=== PATIENT | female | born 1950 | race Caucasian/White ===

== ENCOUNTER → 2019-08-22 14:46 | Outpatient (CLI) | payer MEDICARE, BC, SELFPAY ==
[2019-08-22 14:17] VITALS: BMI 31.5
[2019-08-22 16:20] LABS: AST(SGOT) 33 U/L (15-37); Alanine Aminotransfer ALT/SGPT 48 U/L (13-56); Alkaline Phosphatase 91 U/L (45-117); Anion Gap 7 (5-15); BUN 14 mg/dL (7-18); BUN/Creat Ratio 12.4 RATIO (10-20); Calcium,Total 8.6 mg/dL (8.5-10.1); Chloride 105 mmol/L (98-107); Cholesterol 309 mg/dL (200); Creatinine, Serum 1.13 mg/dL (0.55-1.02); EST Glomerular Filtration Rate 51 mL/min (>60); Est Glom Filt Rate - Afr Amer 61 mL/min (>60); Glucose 85 mg/dL (74-106); High Density Lipoprotein 37 mg/dL; Sodium Level 139 mmol/L (136-145); Thyroid Stim Hormone (TSH) 1.13 uIU/mL (0.358-3.74); Triglycerides 319 mg/dL; Very Low Density Lipoprotein 64 mg/dL (5-40)
[2019-08-22 16:26] LABS: Absolute Lymphocyte Count 2.39 X10^3/uL (0.83-4.51); Absolute Neutrophil Count 2.6 X10^3/uL (2.0-7.7); Basophil# 0.07 X10^3/uL; Basophil% 1.2 % (0-1); Eosinophil# 0.19 X10^3/uL; Eosinophils% 3.3 % (0-5); Hematocrit 45.7 % (37-47); Hemoglobin 15.2 g/dL (12.0-15.0); Lymphocyte # 2.39 X10^3/ul (4.0); Lymphocyte % 41.1 % (19-41); Mean Corp Hgb Conc 33.3 g/dL (32-36); Mean Corpuscular Volume 93.3 fL (81-99); Mean Platelet Vol. 9.3 fl (6.2-12.0); Monocyte# 0.52 X10^3/uL; Monocyte% 8.9 % (0-10); NRBC Flagged by Analyzer 0 % (0-5); Neutrophil # 2.64 X10^3/uL (2.7-7.7); Neutrophil % 45.3 % (47-70); Platelet Count 398 K/mm3 (150-450); RBC Distribution Width CV 11.9 % (11.6-14.6); White Blood Count 5.8 K/mm3 (4.4-11.0)
[2019-08-26 13:08] LABS: Thyroid Peroxidase AB 10 IU/mL (0-34)
== END ==
PROVIDERS: Family Provider Family Medicine; PCP Family Medicine; Referring Provider Internal Medicine Endocrinology, Diabetes & Metabolism; Visit Provider Internal Medicine Endocrinology, Diabetes & Metabolism
DX: E78.2 Mixed hyperlipidemia (principal)
CPT/HCPCS: 36415; 80053; 80061; 84443; 85025; 86376

== ENCOUNTER → 2019-09-05 10:58 | Outpatient (CLI) | payer MEDICARE, SELFPAY ==
[2019-08-22 14:17] VITALS: BMI 31.5
[2019-09-05 14:28] LABS: Anion Gap 8 (5-15); BUN 10 mg/dL (7-18); BUN/Creat Ratio 9.7 RATIO (10-20); Calcium,Total 9.4 mg/dL (8.5-10.1); Chloride 110 mmol/L (98-107); Cholesterol 141 mg/dL (200); Creatinine, Serum 1.03 mg/dL (0.55-1.02); EST Glomerular Filtration Rate 56 mL/min (>60); Est Glom Filt Rate - Afr Amer 68 mL/min (>60); Glucose 103 mg/dL (74-106); High Density Lipoprotein 43 mg/dL; Potassium 4.2 mmol/L (3.5-5.1); Sodium Level 141 mmol/L (136-145); Triglycerides 157 mg/dL; Very Low Density Lipoprotein 31 mg/dL (5-40)
[2019-09-05 14:33] LABS: Vitamin D,25 Hydroxy 19.4 ng/mL (29.95-100.01)
== END ==
PROVIDERS: Family Provider Family Medicine; PCP Family Medicine; Referring Provider Family Medicine; Visit Provider Family Medicine
DX: E78.5 Hyperlipidemia, unspecified (principal); E55.9 Vitamin D deficiency, unspecified
CPT/HCPCS: 36415; 80048; 80061; 82306

== ENCOUNTER → 2020-09-02 09:38 | Outpatient (CLI) | payer MEDICARE, SELFPAY ==
[2019-08-22 14:17] VITALS: BMI 31.5
[2020-09-02 12:39] LABS: Vitamin D,25 Hydroxy 21.4 ng/mL
[2020-09-02 12:46] LABS: Anion Gap 9 (5-15); BUN 24 mg/dL (7-18); BUN/Creat Ratio 24.2 RATIO (10-20); Calcium,Total 9.2 mg/dL (8.5-10.1); Chloride 106 mmol/L (98-107); Cholesterol 169 mg/dL (200); Creatinine, Serum 0.99 mg/dL (0.55-1.02); EST Glomerular Filtration Rate 59 mL/min (>60); Est Glom Filt Rate - Afr Amer 71 mL/min (>60); Glucose 113 mg/dL (74-106); High Density Lipoprotein 39 mg/dL; Potassium 3.9 mmol/L (3.5-5.1); Sodium Level 139 mmol/L (136-145); Triglycerides 245 mg/dL; Very Low Density Lipoprotein 49 mg/dL (5-40)
== END ==
PROVIDERS: PCP Family Medicine; Referring Provider Family Medicine; Visit Provider Family Medicine
DX: E78.5 Hyperlipidemia, unspecified (principal); E55.9 Vitamin D deficiency, unspecified; K21.9 Gastro-esophageal reflux disease without esophagitis
CPT/HCPCS: 36415; 80048; 80061; 82306

== ENCOUNTER → 2022-07-25 | Outpatient (CLI) | payer MEDICARE, SELFPAY ==
--- NOTE | 2022-07-25 10:19 | BI_ITS ---
MAMMOGRAPHY - BILATERAL SCREENING REASON FOR EXAM: Female, 72 years old. Routine annual screening examination. PERTINENT HISTORY: Non-contributory. TECHNIQUE: Digital bilateral breast nile (3D mammographic acquisition) in the CC and MLO projections. 2-D mediolateral oblique (MLO) and craniocaudad (CC) views of both breasts were obtained. CAD: Full Field Digital Mammography with Computer Added Detection was performed. COMPARISON: Comparison is made with prior outside examination dated 12/23/2005. FINDINGS: Breast Composition: The breasts are heterogeneously dense, which may obscure small masses. There is a 5.8 mm x 7.8 mm well-defined nodule in the deep central aspect of the right breast. Correlation with ultrasound is recommended. No other significant abnormalities are identified. BI/SCRN MAMM (CAD)W/NILE BILAT IMPRESSION: 5.8 mm x 7.8 mm well-defined nodule in the deep central aspect of the right breast as described. Correlation with ultrasound is recommended. ASSESSMENT CATEGORY: BIRADS Category 0: Incomplete. Need additional imaging evaluation. A letter regarding these results will be sent to the patient by the facility within 30 days. Approximately 10% of breast cancers are not detected by mammography. A normal mammogram should not delay biopsy of a clinically suspicious abnormality. [id number] Electronically Signed: Samuel Carter MD at 13:11 EST ,
== END | disposition home or self-care (01) ==
LOC: OPBI 10:15
PROVIDERS: PCP Family Medicine; Visit Provider Family Medicine
DX: Z12.31 Encounter for screening mammogram for malignant neoplasm of breast (principal)
CPT/HCPCS: 77063; 77067

== ENCOUNTER → 2022-07-27 | Outpatient (CLI) | payer MEDICARE, SELFPAY ==
--- NOTE | 2022-07-27 10:45 | US_ITS ---
STUDY: ULTRASOUND BREAST - RIGHT REASON FOR EXAM: Female, 72 years old. Abnormal screening mammogram. TECHNIQUE: Axial and longitudinal images of the RIGHT breast were performed with a high resolution ultrasound transducer. # OF IMAGES: 12 COMPARISON: Comparison is made with prior mammogram dated 07/25/2022. FINDINGS: RIGHT Breast: The mammographic abnormality corresponds to a 7 mm x 6 mm x 5 mm hypoechoic well-defined nodule at the 12 o''clock position of the breast at 2 cm from nipple. Biopsy recommended. US/Breast Limited Unilateral IMPRESSION: 7 mm x 6 mm x 5 mm hypoechoic well-defined nodule at the 12 o''clock position of the breast at 2 cm from nipple. Biopsy recommended. ASSESSMENT CATEGORY: BIRADS Category 4: Suspicious - Biopsy Should Be Considered. A letter regarding these results will be sent to the patient by the facility within 30 days. Electronically Signed: Samuel Carter MD at 9:46 EST ,
== END | disposition home or self-care (01) ==
LOC: OPUS 10:41
PROVIDERS: PCP Family Medicine; Visit Provider Family Medicine
DX: R92.8 Other abnormal and inconclusive findings on diagnostic imaging of breast (principal)
CPT/HCPCS: 76642

== ENCOUNTER → 2022-07-29 | Outpatient (CLI) | payer MEDICARE, SELFPAY ==
--- NOTE | 2022-07-29 10:00 | BRBX_PTH ---
PATIENT: CONY HOYT LOC: [facility] U#:[id number] AGE/SX: 72/F ROOM: RE07/29/[address]: Dr. Daisy Conrad MD : 1950 BED: DIS: 07/29/2022 SPEC #: [id number] RECD: 07/29/22 12:01 STATUS: DHIRAJ AIDA #: [id number] KIM: 07/29/22 10:[address]: Daisy Conrad DEPT: SURGICAL PATHOLOGY RECD BY: Xioamra Raphael ENTERED: 07/29/22 12:53 SP TYPE: BREAST BX OTHR DR: Dr. Brenton Feliciano MD Tissues: Right breast, NOS Procedures: Surgery Specimen Level IV HEADER OPERATION: Right breast biopsy PRE-OP DIAGNOSIS: Right breast mass TISSUE SUBMITTED: Right breast tissue 12 o?clock, 2 cm from nipple MICROSCOPIC DIAGNOSIS Right breast at 12 o?clock, core biopsy: Fibroadenoma, hyalinized. Focal intraductal hyperplasia without atypia. AM:alyson 08/01/2022 MICROSCOPIC DESCRIPTION Slides are reviewed. GROSS DESCRIPTION Received in fixative is one container labeled with the patient's name and designated right breast. The specimen consists of multiple irregular and elongated fragments of venegas-yellow soft tissue that in aggregate measure 1.7 x 1 x 0.1 cm. The specimen is totally submitted in one cassette. / AM:alyson 07/29/2022 TC:5 CPT: 57021
== END | disposition home or self-care (01) ==
PROVIDERS: PCP Family Medicine; Visit Provider Surgery
DX: D24.1 Benign neoplasm of right breast (principal)
CPT/HCPCS: 88305

== ENCOUNTER 2023-02-16 08:50 | Outpatient (CLI) | payer MEDICARE, SELFPAY ==
[2023-02-16 11:07] LABS: ALB/GLOB Ratio 1.1 RATIO (0.9-2.4); AST(SGOT) 36 U/L (15-37); Alanine Aminotransfer ALT/SGPT 49 U/L (13-56); Albumin, Serum 3.8 g/dL (3.2-5.0); Alkaline Phosphatase 87 U/L (45-117); Anion Gap 7 (5-15); BUN 14 mg/dL (7-18); BUN/Creat Ratio 14.2 RATIO (10-20); Calcium,Total 8.8 mg/dL (8.5-10.1); Chloride 108 mmol/L (98-107); Cholesterol 194 mg/dL (200); Creatinine, Serum 0.98 mg/dL (0.55-1.02); EST Glomerular Filtration Rate 59 mL/min (>60); Est Glom Filt Rate - Afr Amer 71 mL/min (>60); Globulin 3.5 g/dL (2.2-4.2); Glucose 138 mg/dL (74-106); High Density Lipoprotein 41 mg/dL; Potassium 4.4 mmol/L (3.5-5.1); Protein, Total 7.3 g/dL (6.4-8.2); Sodium Level 140 mmol/L (136-145); Triglycerides 215 mg/dL; Very Low Density Lipoprotein 43 mg/dL (5-40)
[2023-02-16 19:03] LABS: Hemoglobin A1c 6.3 % (3.8-5.6)
== END 2023-02-16 23:59 | disposition home or self-care (01) ==
LOC: MFPLAB 08:53
PROVIDERS: PCP Family Medicine; Visit Provider Family Medicine
DX: E78.5 Hyperlipidemia, unspecified (principal); R73.09 Other abnormal glucose
CPT/HCPCS: 36415; 80053; 80061; 83036

== ENCOUNTER → 2023-09-20 | Outpatient (CLI) | payer MEDICARE, SELFPAY ==
--- OUTSIDE RECORDS SUMMARY | 2023-09-20 08:37 | XMS RPT_ITS | CCD ---
Author Name Unknown Address [address] [place] [address] Organization [facility] Care Team Providers Care Foreign Car Mechanic Name Role Phone SHANNON RUIZ Unavailable Unavailable REFERRING, HERNESTO WO ID~[id number] Unavailable Unava ilable RAGDEQUANNATHAN, ALEYDA Unavailable Unavailable REFERRING, PHY WO ID~[id number] Unavailable Unava ilable CORINAHUNATHAN, ALEYDA Unavailable Unavailable Results Test Name Value Interpretation Reference Range Facil ity Encounters Encounter Date Encounter Type Care Provider Facility Start: 02-09-2018 Ambulatory ALEYDA ROE Fac ility:B Start: 05-23-2017 End: 05-24-2017 Ambulatory ALEYDA ROE Facility:[facility] Start: 05-08-2017 End: 05-09-2017 Ambulatory SHANNON RUIZ Facility:[facility] Payers Date Payer Category Payer Medicare [id number] Summary Purpose Family History No Family History Records Found Advance Directives No Advanced Directives Records Found Additional Source Comments INFORMATION SOURCE (unrecogn ized section and content) FOR RECORDS PERTAINING TO PATIENTS WHO ARE OR HAVE BEEN ENROLLED IN A CHEMICAL DEPENDENCY/SUBSTANCEABUSE PROGRAM, SOME INFORMATION MAY BE OMITTED. This clinical summary was aggregated from multiple sources. Caution should be exercised in using it in the provision of clinical care. This summary normalizes information from multiple sources, and as a consequence, information in this document may materially change the coding, format and clinical context of patient data. In addition, data may be omitted in some cases. CLINICAL DECISIONS SHOULD BE BASED ON THE PRIMARY CLINICAL RECORDS. [facility]. provides no warranty or guarantee of the accuracy or completeness of information in this document.
[2023-09-20 11:57] LABS: ALB/GLOB Ratio 1.1 RATIO (0.9-2.4); AST(SGOT) 32 U/L (15-37); Alanine Aminotransfer ALT/SGPT 40 U/L (13-56); Albumin, Serum 3.9 g/dL (3.2-5.0); Alkaline Phosphatase 88 U/L (45-117); Anion Gap 7 (5-15); BUN 20 mg/dL (7-18); BUN/Creat Ratio 17.2 RATIO (10-20); Calcium,Total 9.3 mg/dL (8.5-10.1); Chloride 108 mmol/L (98-107); Cholesterol 150 mg/dL (200); Creatinine, Serum 1.16 mg/dL (0.55-1.02); EST Glomerular Filtration Rate 49 mL/min (>60); Est Glom Filt Rate - Afr Amer 59 mL/min (>60); Globulin 3.7 g/dL (2.2-4.2); Glucose 120 mg/dL (74-106); High Density Lipoprotein 40 mg/dL; Potassium 3.8 mmol/L (3.5-5.1); Protein, Total 7.6 g/dL (6.4-8.2); Sodium Level 137 mmol/L (136-145); Triglycerides 201 mg/dL; Very Low Density Lipoprotein 40 mg/dL (5-40)
== END | disposition home or self-care (01) ==
LOC: MFPLAB 08:21
PROVIDERS: PCP Family Medicine; Visit Provider Family Medicine
DX: E11.69 Type 2 diabetes mellitus with other specified complication (principal)
CPT/HCPCS: 36415; 80053; 80061

== ENCOUNTER → 2023-11-02 | Outpatient (CLI) | payer MEDICARE, SELFPAY ==
[2023-11-02 13:13] LABS: Anion Gap 12 (5-15); BUN 17 mg/dL (7-18); BUN/Creat Ratio 17.1 RATIO (10-20); Calcium,Total 9.1 mg/dL (8.5-10.1); Chloride 104 mmol/L (98-107); Creatinine, Serum 0.99 mg/dL (0.55-1.02); EST Glomerular Filtration Rate 58 mL/min (>60); Est Glom Filt Rate - Afr Amer 70 mL/min (>60); Glucose 121 mg/dL (74-106); Potassium 3.9 mmol/L (3.5-5.1); Sodium Level 139 mmol/L (136-145)
[2023-11-02 14:13] LABS: Hemoglobin A1c 5.9 % (3.8-5.6)
== END | disposition home or self-care (01) ==
LOC: MFPLAB 09:34
PROVIDERS: PCP Family Medicine; Visit Provider Family Medicine
DX: E11.69 Type 2 diabetes mellitus with other specified complication (principal)
CPT/HCPCS: 36415; 80048; 83036

== ENCOUNTER → 2024-09-27 | Outpatient (CLI) | payer MEDICARE, SELFPAY ==
[2024-09-27 13:19] LABS: Anion Gap 7 (5-15); BUN 15 mg/dL (7-18); Calcium,Total 9.1 mg/dL (8.5-10.1); Chloride 105 mmol/L (98-107); Cholesterol 206 mg/dL (200); Creatinine, Serum 1.15 mg/dL (0.55-1.02); EST Glomerular Filtration Rate 49 mL/min (>60); Est Glom Filt Rate - Afr Amer 59 mL/min (>60); Glucose 127 mg/dL (74-106); High Density Lipoprotein 44 mg/dL; Potassium 3.9 mmol/L (3.5-5.1); Sodium Level 138 mmol/L (136-145); Triglycerides 257 mg/dL; Very Low Density Lipoprotein 51 mg/dL (5-40)
[2024-09-27 15:43] LABS: Hemoglobin A1c 6.2 % (3.8-5.6)
[2024-09-27 16:06] LABS: Protein, Urine (Random) 34.3 mg/dL (<11.9); Protein:Creat Ratio 175 mg/g CRE (0-200)
== END | disposition home or self-care (01) ==
LOC: MFPLAB 10:04
PROVIDERS: PCP Family Medicine; Referring Provider Family Medicine; Visit Provider Family Medicine
DX: E11.69 Type 2 diabetes mellitus with other specified complication (principal)
CPT/HCPCS: 36415; 80048; 80061; 82570; 83036; 84156

== ENCOUNTER → 2024-10-17 | Outpatient (CLI) | payer MEDICARE, SELFPAY ==
--- NOTE | 2024-10-17 08:22 | BI_ITS ---
PROCEDURE: DIAG MAMM W/CAD, BILAT REASON FOR EXAM: F, Age 74 y/o, palpable lump in the left breast. TECHNIQUE: Bilateral screening digital breast tomosynthesis with 2D and 3D images. Computer aided detection. COMPARISON: Prior exam(s) dating back to July 25, 2022.. FINDINGS: The breasts are heterogeneously dense which may obscure small masses. There are now was evidence of a 1.9 cm by 1.6 cm slightly irregular nodule in the upper deep medial aspect of the left breast. This corresponds with the palpable abnormality. Sonographic correlation recommended. BI/DIAG MAMM W/CAD, BILAT IMPRESSION: BI-RADS 0: INCOMPLETE - NEED ADDITIONAL IMAGING EVALUATION. Follow-up code: Correlation with ultrasound for further assessment. The patient will be notified of the results by letter. Reading Location: [id number]
--- NOTE | 2024-10-17 08:22 | US_ITS ---
PROCEDURE: BREAST LIMITED UNILATERAL REASON FOR EXAM: Palpable lump in the left breast. COMPARISON: Prior mammogram done earlier in the day. TECHNIQUE: Targeted bilateral breast ultrasound. FINDINGS: LEFT: Ultrasound targeted to the upper inner quadrant at the left breast. The palpable lump and mammographic abnormality corresponds to a 2.1 cm x 1.8 cm x 1.9 cm hypoechoic irregular nodule at the 11 o'clock position of the breast at 9 cm from the nipple. The margins are indistinct. Biopsy strongly recommended. US/Breast Limited Unilateral IMPRESSION: BI-RADS category 4. Biopsy recommended. Reading Location: [facility]
== END | disposition home or self-care (01) ==
PROVIDERS: PCP Family Medicine; Referring Provider Family Medicine; Visit Provider Family Medicine
DX: N63.15 Unspecified lump in the right breast, overlapping quadrants (principal)
CPT/HCPCS: 76642; 77062; 77066; G0279

== ENCOUNTER → 2024-10-18 | Outpatient (CLI) | payer MEDICARE, SELFPAY ==
--- NOTE | 2024-10-18 | IMM_PTH ---
PATIENT: CONY HOYT LOC: [facility] U#:[id number] AGE/SX: 74/F ROOM: RE10/18/[address]: Dr. Daisy Conrad MD : 1950 BED: DIS: 10/18/2024 SPEC #: [id number] RECD: 10/22/24 09:50 STATUS: DHIRAJ REQ #: [id number] KIM: 10/18/24 00:[address]: Daisy Conrad DEPT: IMMUNOHISTOCHEMISTRY RECD BY: Scott García ENTERED: 10/22/24 09:51 SP TYPE: IMMUNO OTHR DR: Dr. Brenton Feliciano MD Tissues: Left breast, NOS Procedures: E-CAD (initial) CALPONIN-1 (add) CK5-6 (add) CK8 (add) HER2 GALDINO (add) KI-67 (add) P53 (add) ME (add) P40 (add) ER (initial) PHYSICIAN & INSTITUTION [address] [address] SPECIMEN INFORMATION: Tissue Source: Left breast mass tissue - 11o'clock, 9cm from nipple Clinical Info: Left breast mass biopsy Specimen Number: [id number] CPT code: 50240,47351s4,43909k1 METHODOLOGY: Deparaffinized sections of prefer/formalin-fixed tissue or PAP/DQ stained slides are incubated with monoclonal/polyclonal antibodies/oligonucleotide probes. Localization is made via biotin free immunoperoxidase method. Appropriate controls are performed and reacted as expected. Results on target cell population are indicated in the following table: RESULTS: ANTIBODY / CLONE RESULT E-Cad (ECH-6) positive CK8 (07pbgjZ05) positive Calponin-1 (AT502P) negative CK5-6 (D5 & 1684) negative P40 (BC28) negative P53 (DO-7) positive, rare cells (wild type pattern) Ki-67 (30-9) positive, high, ~70% MORPHOMETRIC ANALYSIS ER (clone 6F11) >95%, strong intensity ME (clone 16/1E2) 0% Her-2Neu (clone CB11) 1+ The prognostic test for HER2 is performed on formalin-fixed paraffin embedded tissue. A 3+ (positive) staining pattern is defined as intense, homogeneous, complete, circumferential membranous staining in >10% of contiguous tumor cells. A similar weak (2+) staining pattern is interpreted as equivocal. MELBA follow-up testing is recommended for all equivocal cases. Positivity/negativity for ER/ME is reported if > or < 1% of the tumor cells are immuno- reactive, respectively. The ASCO/CAP criteria is used for scoring. Reference: Journal of Clinical Oncology, 2013; 31:7708-7026 & 2010; 16:5781-0071. Ischemic time: Less than one hour. Duration of fixation: __ Hrs; Sample Adequate: Yes. These assays have not been validated on decalcified tissues. Results should be interpreted with caution given the likelihood of false negativity on decalcified specimens or fixation greater than 72 hours. Alternative testing methods (FISH/dualISH for Her2; gene expression for ER) are recommended, if applicable. Please notify the laboratory if additional testing is required. These tests were developed and their performance characteristics determined by [facility]. They may not have been cleared or approved by the U.S. Food and Drug Administration. The FDA has determined that such clearance or approval is not necessary. The above immunohistochemical/dualISH markers are ordered and reviewed by the Pathologist. INTERPRETATION: Left breast mass, 11o'clock, 9cm from nipple, core biopsy: Invasive ductal carcinoma. Positive for estrogen receptors (favorable prognostic indicator). Negative for progesterone receptors (favorable prognostic indicator). Negative for overexpression of JKM8ozp. SJ.mr 10/23/2024
--- NOTE | 2024-10-18 14:30 | BRBX_PTH ---
PATIENT: CONY HOYT LOC: [facility] U#:[id number] AGE/SX: 74/F ROOM: RE10/18/[address]: Dr. Daisy Conrad MD : 1950 BED: DIS: 10/18/2024 SPEC #: [id number] RECD: 10/20/24 15:00 STATUS: DHIRAJ AIDA #: [id number] KIM: 10/18/24 14:[address]: Daisy Conrad DEPT: SURGICAL PATHOLOGY RECD BY: Xiomara Raphael ENTERED: 10/21/24 07:54 SP TYPE: BREAST BX OTHR DR: Dr. Brenton Feliciano MD Tissues: Left breast, NOS Procedures: Surgery Specimen Level IV HEADER OPERATION: Left breast mass biopsy PRE-OP DIAGNOSIS: Left breast mass biopsy TISSUE SUBMITTED: Left breast mass tissue- 11o'clock, 9cm from nipple MICROSCOPIC DIAGNOSIS Left breast mass tissue, core biopsy: Invasive ductal carcinoma. See cancer summary in the comment section. 10/22/2024 COMMENT INVASIVE BREAST CANCER SUMMARY: Procedure: Needle core biopsy Specimen Laterality: Left Tumor site: 11o'clock, 9cm from nipple Histologic type: Invasive ductal carcinoma, no special type Provisional Histologic grade: Glandular/tubule Differentiation Score: 3 Nuclear Pleomorphism Score: 3 Mitotic Rate Score: 1 Overall grade: Grade 2 (score of 7) Tumor Size (greatest dimension): invasive carcinoma measures 1.1cm in greatest length Ductal Carcinoma Insitu: Not identified Angiolymphatic Invasion: Not identified Microcalcifications: Not identified Additional Findings: None Breast Marker Study: [id number] ER: positive (>95%, strong intensity) GA: negative (0%) Her2: negative (1+) Ki67: positive, high, ~70% The above summary is in compliance with [employer] Pathology (CAP) Cancer Protocols Checklist and [place] Joint Committee on Cancer (AJCC), Staging Manual, 8th Ed. Immunohistochemistry ([id number]) supports the above diagnosis. MICROSCOPIC DESCRIPTION Slides are reviewed. GROSS DESCRIPTION Received in fixative is one container labeled with the patient's name and designated Left breast mass. The specimen consists of two cores of venegas tissue each measuring 1-2mm in diameter and each measuring 1.5cm in length submitted together entirely in one cassette. MAYNOR 10/21/2024 TC:0 CPT:89942
== END | disposition home or self-care (01) ==
LOC: LABSPEC 16:50
PROVIDERS: PCP Family Medicine; Referring Provider Surgery; Visit Provider Surgery
DX: C50.812 Malignant neoplasm of overlapping sites of left female breast (principal); Z17.0 Estrogen receptor positive status [ER+]
CPT/HCPCS: 88305; 88341; 88342

== ENCOUNTER 2024-11-26 06:48 | Day surgery (SDC) | payer MEDICARE, SELFPAY ==
[2024-11-26] VITALS (10 sets, daily range): BP systolic 130–167; BP diastolic 66–87; PULSE 72–88; RESP 14–18; TEMP 36.1–36.6; O2SAT 94–99; BMI 32.9
--- NOTE | 2024-11-26 07:23 | PCM.HP.BLA ---
History and Physical Date of Admission: 11/26/24 Date of Service: 10/29/24 MR#: [id number] Acct: [id number] Name: CONY HOYT Rep #: [id number] : 1950 Provider: Dr. Daisy Conrad MD Age/Sex: 74/F Location: [facility] Status: Signed Intake Vital Signs 10/18/2513:15 10/30/2507:40 Height 5 ft 3 in 5 ft 3 in Weight: 180 lb 184 lb BMI 31.8 32.5 BP 163/84 H 150/88 H Blood Pressure Location Lt brachial Rt brachial Position Sitting Sitting Respiration 18 18 Pulse 78 Pulse Source Monitor Temp 97.5 F L Temp Source Temporal Pulse Oximetry (%) 100 Oxygen Delivery Method room air Intake Visit Reasons: DSICUSS BREAST SURGERY Chief Complaint: discuss breast sx Is patient in pain?: No Allergies No Known Allergies Allergy (Verified 10/29/24 08:41) Medications ?Medication ?Instructions ?Recorded ?Confirmed ?Type omeprazole 40 mg capsule,delayed 40 mg PO DAILY 07/29/22 10/29/24 History release rosuvastatin 10 mg tablet 20 mg PO DAILY 07/29/22 10/29/24 History calcium carbonate 500 mg PO QDAY 10/18/24 10/29/24 History cholecalciferol (vitamin D3) 25 25 mcg PO QDAY 10/18/24 10/29/24 History mcg (1,000 unit) capsule vitamin B12 1 mg-folic acid 0.8 mg tab PO 10/18/24 10/29/24 History tablet Have you fallen in the past year?: No PFSH Medical History (Updated 10/29/24 @ 09:09 by Taina Herron LPN) Invasive ductal carcinoma of breast Hypercholesteremia GERD (gastroesophageal reflux disease) Surgical History S/P partial hysterectomy History of tonsillectomy Family History Mother CAD (coronary artery disease)Brother CAD (coronary artery disease)Other Mixed hyperlipidemia Social History Smoking Status: Never smoker alcohol intake: never HPI HPI HPI: 74-year-old female presents for discussion of surgical treatment of left breast cancer. Pathology was invasive ductal carcinoma ER positive, NE negative, HER2/reji negative. ROS General General: Yes weight change and fatigue; No appetite, colon cancer, breast cancer or weakness HEENT HEENT: No difficulty swallowing, eye injury, eye surgery, swollen glands or hoarseness Endo Endocrine: Yes diabetes mellitus; No thyroid disease, thyroid cancer, Hair loss, heat intolerance or cold intolerance Skin Skin: No rash or changing moles Breast Breast: Yes left breast lump, abnormal mammogram and abnormal US; No right breast lump, nipple discharge, breast pain or breast enlargement Musc Musculoskeletal: No back problems, arthritis, rheumatoid arthritis, gout or joint pain Cardio Cardiovascular: No murmur, pacemaker, heart disease, atrial fibrillation, high blood pressure, heart attack, heart stent, palpitations, shortness of breat with exertion or chest pain Psych Psychiatric: No depression, anxiety or hearing voices Resp Respiratory: No shortness of breath, No sleep apnea, No cough, No COPD, No asthma, No emphysema and No wheezing Gastro Gastrointestinal: No abdominal pain, No nausea or vomiting, No diarrhea, No constipation, No blood in stool, No acid reflux, No hemorrhoids, No ulcers, No gallbladder problem and No black,tarry stools Edvin Hematologic: No blood thinners, No blood disorders, No bleeding, No anemia and No blood clots Neuro Neurologic: No weakness Exam Const General: cooperative, healthy appearing and no acute distress HENMT Head: normal to inspection Chest Other: Left breast biopsy site healing well. Resp Effort & Inspection: normal respiratory effort Cardio Rate: regular rate GI Inspection: non-distended Palpation: soft Skin General: no rashes or lesions noted Neuro General: patient oriented x3 Extrem General: no clubbing, cyanosis or edema Psych Affect: normal affect Assessment and Plan Assessment and Plan (1) Invasive ductal carcinoma of breast: Status: Acute Orders: Referrals Radiation Oncology C50.919 - Malignant neoplasm of unspecified site of unspecified female breast Plan I have given the patient options for initial surgical treatment. Options are the following: lumpectomy followed by radiation therapy vs. mastectomy vs. mastectomy followed by immediate reconstruction. I have described the procedures to the patient. I have described the advantages and disadvantages of the options, but I have told the patient that among the options, the survival rate for breast cancer is the same. I have told the patient that with all the surgeries that a sentinel lymph node biopsy is required. I have described the procedure of sentinel lymph node biopsy to the patient. I have told the patient that if the biopsy is positive for metastatic disease, then a full axillary lymph node dissection is required. I have told the patient that adjuvant chemotherapy will be required should the lymph nodes reveal metastatic disease. Also, a full lymph node dissection will increase the risk for lymphedema, especially if there are 4 or more lymph nodes positive for metastatic disease and radiation to the axilla is also required. I have told the patient the risks of surgery, including but not limited to: infection, bleeding, scar tissue, seroma and persistent seroma, lymph leak, injury to any blood vessels, injury to any nerves (particularly the long thoracic, the thoracodorsal, and the second intercostal brachial and the resultant sequelae), lymphedema, cosmetic deformity, dysesthesias, wound infections, further surgery (especially if margins are not clear), complications of anesthesia, etc. the patient understands. Patient is planning on the left lumpectomy with sentinel lymph node biopsy, possible axillary lymph node dissection, patient is not interested in mastectomy or reconstruction. Patient will first meet with Dr. Correa make sure she is still agreeable as she would need to get radiation after lumpectomy. I have answered all the patient?s questions at this point to her satisfaction and she has no further questions. Daisy Conrad M.D. Pager: [phone] [facility] [address] [place] [address], [address] [place] [address] Office: [phone] Coding Level of Care Code Off vis,est,level 4 Diagnoses Invasive ductal carcinoma of breast C50.919 Clinical Quality Measures Falls Risk Screening/Assistive Devices Have you fallen in the past year?: No 11/06/24 1146 <Electronically signed by Daisy Conrad MD> Date Daisy Conrad MD Cosigner Signature: Date (if applicable) CC: Dr. Brenton Feliciano MD; Dr. Kavon Correa DO ~
--- NOTE | 2024-11-26 07:28 | NM_ITS ---
EXAM: Union lymph node injection. CLINICAL HISTORY: Left breast cancer. COMPARISON: None TECHNIQUE: 588 uCi of Tilmanocept was injected subdermally 1 cm above the 12 o'clock position of the left breast. FINDINGS: Subdermal injection of the radiopharmaceutical for sentinel node imaging. NM/Lymph Node Injection Only IMPRESSION: Subdermal injection of the radiopharmaceutical for sentinel node imaging. Reading Location: [id number]
[2024-11-26] MEDS: 0.9% Normal Saline (1000mL) 1,000 ML 15 ML IV (07:38)
--- NOTE | 2024-11-26 08:10 | PCM.PRE.AN2 ---
ASA Classification* ASA Classification ASA Classification: 2 Assessment & Plan Anesthesia* Anesthesia Assessment Anesthesia Assessment: Discussed sedation and/or anesthesia options, risks, benefits, and alternatives with patient/parents/legal guardian/POA. Questions invited. The patient/parents/legal guardian/POA seems to understand and agrees to proceed with anesthesia plan. Reviewed the physical assessment, medical history, allergy history and patient home medications list prior to surgery/procedure/anesthetic and documented any changes. Performed airway and anesthesia risk assessments. Anesthesia Type Anesthesia Type: General History Source History Obtained from:: Patient and Chart Anesthesia Focused Assessment* Temperature: 97.8 F Pulse Rate: 88 Blood Pressure: 167/86 Respiratory Rate: 16 Pulse Ox: 96 Oxygen Delivery Method: Room Air Airway Assessment Mouth opens: >3 cm Mallampati Score: II Teeth Condition: Dentures (Patient has full upper and lower dentures. They are out.) Neck Range of motion (ROM): Limited ROM (Somewhat decreased extension) Focused Labs Anesthesia Preop lab: CBC WBC 5.8 K/mm3 (4.4-11.0) 08/22/19 14:52 08/22/19 RBC 4.90 M/mm3 (4.2-5.4) 08/22/19 14:52 08/22/19 Hgb 15.2 g/dL (12.0-15.0) H 08/22/19 14:52 08/22/19 Hct 45.7 % (37-47) 08/22/19 14:52 08/22/19 Plt Count 398 K/mm3 (150-450) 08/22/19 14:52 08/22/19 CHEMISTRY Potassium 3.9 mmol/L (3.5-5.1) 09/27/24 10:05 09/27/24 Sodium 138 mmol/L (136-145) 09/27/24 10:05 09/27/24 BUN 15 mg/dL (7-18) 09/27/24 10:05 09/27/24 Creatinine 1.15 mg/dL (0.55-1.02) H 09/27/24 10:05 09/27/24 Glucose 127 mg/dL (74-106) H 09/27/24 10:05 09/27/24 TSH 1.13 uIU/mL (0.358-3.74) 08/22/19 14:52 08/22/19 COAG Pre-Assessment Diagnosis/Proposed Procedure Planned Operative Procedure(s): U/S WIRE LOCALIZATION LEFT LUMPECTOMY WITH SLN BX BLUE DYE AND RADIOTRACER POSS AXILLARY DISSECTION Anesthesia History 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 When Was Last Pacemaker Check QUESTION #4 FULL TEXT: You/Your Family Experience fever (hyperthermia) with Anesthesia Last Oral Intake Last Oral intake: Last Oral Intake NPO since 22:00 11/26/24 07:26 Meds taken in AM with sips of No 11/26/24 07:26 water? Meds patient instructed to take am of surgery PONV PONV - electronics department manager: PONV - electronics department manager Female Yes 11/15/24 10:10 HX of Motion Sickness No 11/15/24 10:10 HX of N/V After Surgery No 11/15/24 10:10 Non-Smoker Yes 11/15/24 10:10 Duration of Surgery greater Yes 11/15/24 10:10 than 60 minutes Number of Risk Factors 3 11/15/24 10:10 PONV Score Moderate Risk 11/15/24 10:10 Height & Weight Height & Weight: Anesthesia: Height & Weight Height 5 ft 3 in 11/26/24 07:26 Weight: 84.4 kg 11/26/24 07:26 Body Mass Index (BMI) 32.9 11/26/24 07:26 Respiratory Assessment Respiratory Assessment - electronics department manager: Respiratory Tract Infection Hx - electronics department manager Hx Respiratory Tract Infection No 11/15/24 10:10 STOP Sleep Apnea STOP Sleep Apnea - electronics department manager: STOP Sleep Apnea - electronics department manager Hx Hypertension No 11/15/24 10:10 Hx Sleep Apnea No 11/15/24 10:10 CPAP BIPAP Do you snore loudly (louder No 11/15/24 10:10 than talking or can be heard Do you often feel tired/ No 11/15/24 10:10 fatigued/ sleepy during daytime? Has anyone observed you stop No 11/15/24 10:10 breathing during sleep? STOP Results Negative 11/15/24 10:10 QUESTION #5 FULL TEXT : Do you snore loudly (louder than talking or can be heard through closed doors)? Tobacco Use History Tobacco Use History - electronics department manager: Tobacco Use History - electronics department manager Tobacco Use Smoking Status Never smoker 11/15/24 10:10 Hx Tobacco Use No 11/15/24 10:10 Years Smoking Packs Smoked per Day Smoking Cessation Date was within the last 15 years Hx Smoking Cessation Date Hx Smoking Cessation Counseling Hematologic Medial History Hematologic Hx - electronics department manager: Hematologic Medical Hx - steel erector Hx of Blood Transfusion No 11/15/24 10:10 Hx of Transfusion in last 3 No 11/15/24 10:10 Months Date of Last Transfusion (if within last 3 months) Ever experience any problems No 11/15/24 10:10 with transfusion(s)? Specify any problems Hx of Preganancy in last 3 No 11/15/24 10:10 Months Nurse Filling Out Transfusion DSCHRIBER 11/15/24 10:10 & Questions: Date: 11/15/24 11/15/24 10:10 Time: 10:12 11/15/24 10:10 Patient unable to answer at this time (ie. confused, unrespo /Reproduction History /Reproductive History - electronics department manager: /Reproductive Hx- electronics department manager Hx Now No 11/15/24 10:10 Gestational Age (in weeks): EDC: Hx Hx Para Hx Section SAB No 11/15/24 10:10 Active Medications Active Medications: Current Medications Generic Name Dose Route Start Last Admin Trade Name Freq PRN Reason Stop Dose Admin Cefazolin Sodium 2 gm/ N/A 20 mls @ 400 mls/hr 11/26/24 09:00 IV 11/26/24 09:02 X1 ONE Sodium Chloride 1,000 mls @ 15 mls/hr 11/26/24 07:05 11/26/24 07:38 IV 12/01/24 20:24 15 mls/hr .Q48H IMAN Administration PFSH Medical History Wears hearing aid Wears glasses Wears dentures Post-menopausal Cancer Diabetes High cholesterol Non-smoker Invasive ductal carcinoma of breast GERD (gastroesophageal reflux disease) Home Medications ?Medication ?Instructions ?Recorded ?Last Taken ?Type omeprazole 40 mg capsule,delayed 40 mg PO DAILY 07/29/22 11/25/24 History release rosuvastatin 10 mg tablet 20 mg PO DAILY 07/29/22 Unknown History cholecalciferol (vitamin D3) 25 25 mcg PO QDAY 10/18/24 11/24/24 History mcg (1,000 unit) capsule vitamin B12 1 mg-folic acid 0.8 mg 1 tab PO DAILY 10/18/24 11/24/24 History tablet Allergy/AdvReac Type Severity Reaction Status Date / Time No Known Allergies Allergy Verified 11/26/24 07:23 Family History Mother CAD (coronary artery disease) Brother CAD (coronary artery disease) Other Mixed hyperlipidemia Surgical History Hx of left cataract extraction Hx of right cataract extraction Hx of colonoscopy S/P partial hysterectomy History of tonsillectomy Social History Smoking Status: Never smoker alcohol intake: never Review of Systems (Anesthesia) ROS Narrative System reviewed and no additional complaints, except as documented.
[2024-11-26] MEDS: 0.9% Normal Saline (Pres. free 10 ML Vial (08:59)
--- NOTE | 2024-11-26 09:00 | LYMN_PTH ---
PATIENT: CONY HOYT LOC: [facility] [place] U#:[id number] AGE/SX: 74/F ROOM: RE11/26/[address]: Dr. Daisy Conrad MD : 1950 BED: DIS: 11/26/2024 SPEC #: [id number] RECD: 11/26/24 12:57 STATUS: DHIRAJ REOphelia #: [id number] KIM: 11/26/24 09:[address]: Daisy Conrad DEPT: SURGICAL PATHOLOGY RECD BY: Scott García ENTERED: 11/26/24 12:58 SP TYPE: LYMPH NODE OTHR DR: Dr. Brenton Feliciano MD Tissues: A - LYMPH NODE BIOPSY B - LYMPH NODE BIOPSY C - Left breast, NOS D - LYMPH NODE BIOPSY E - LYMPH NODE BIOPSY F - Left breast, NOS Procedures: Frozen Section (charge) Immunohistochemical Stains Frozen Section Add'l ([facility]) Surgery Specimen Level IV Surgery Specimen Level V IHC Stain ADDITIONAL HEADER OPERATION: Ultrasound wire localized left lumpectomy with sentinel lymph node biopsy, blue dye/ radiotracer PRE-OP DIAGNOSIS: Invasive ductal carcinoma of breast, left TISSUE SUBMITTED: A- Left breast sentinel lymph node, B- Left breast sentinel lymph node, C- Left breast lumpectomy, D- Left breast sentinel lymph node, E- Left breast sentinel lymph node, F- Left breast lumpectomy, new medial margin * long stitch- new medial margin, short stitch- superior* Ischemic Time: 1 minute Fixation Time: hours FROZEN SECTION DIAGNOSIS A. Left breast sentinel lymph node, biopsy: No lymphoid tissue seen. B. Left breast sentinel lymph node, biopsy: No lymphoid tissue seen. C. Left breast, lumpectomy: Medial margin is very close on gross examination. D. Left breast sentinel lymph node, biopsy: Negative for metastasis. E. Left breast sentinel lymph node, biopsy: Negative for metastasis. MS/mr 11/26/2024 MICROSCOPIC DIAGNOSIS A. Left Axilla, [place] Lymph Node 1, Biopsy: - Fibroadipose tissue. - No lymphoid tissue seen. B. Left Axilla, [place] Lymph Node 2, Biopsy: - Fibroadipose tissue. - No lymphoid tissue seen. C. Left Breast, Invasive Ductal Carcinoma, Lumpectomy: - Invasive ductal carcinoma NST, multifocal, pT2 pN1mi (see part D) - Grade 3 (tubule 3, nuclear 3, mitosis 2) - Medial margin involved. - Less than 1 mm from inferior margin. D. Left Axilla, [place] Lymph Node 3, Biopsy: - Positive for micrometastasis (1/2). E. Left Axilla, [place] Lymph Node 4, Biopsy: - Negative for metastasis (0/1). F. Left Breast, New Medial Margin. Re-excision: - Margins negative for invasive carcinoma. - Lymphovascular invasion present. COMMENT SYNOPTIC REPORT FOR INVASIVE BREAST CARCINOMA Specimen (P=partial, M=mastectomy): P Laterality (R=right, L=left): L Focality (U=unifocal, M=multifocal): M Tumor size (cm): 2.2 Histologic type: invasive ductal carcinoma NST Histologic grade: 3 ??? Tubule score (1-3): 3 ??? Nuclear score (1-3): 3 ??? Mitotic score (1-3): 2 Skin, nipple epidermis, skeletal muscle (I=involved, N=negative, NA=not applicable): I (dermis) Lymphovascular invasion (E=extensive, F=focal, N=not identified): F Margins of main specimen (P=positive, N=negative): P Distance to closest margin of main specimen (mm): 0 Designation of closest margin of main specimen: medial Designation of other margins of main specimen </=1 mm: NA Re-resection margin status (P=positive, N=negative, NA=not applicable): N DCIS (P=present, N=not identified): N ?? Nuclear grade: NA ?? Comedo necrosis (P=present, N=not identified): NA ?? Extensive intraductal component (P=present, N=not identified): NA ?? Margins of main specimen (P=positive, N=negative): NA ?? Distance to closest margin of main specimen (mm): NA ?? Designation of closest margin of main specimen: NA ?? Designation of other margins of main specimen </=2 mm: NA ?? Longest span </= 2 mm to margin of main specimen (mm): NA ?? Re-resection margin status (P=positive, N=negative, NA=not applicable): NA Regional lymph nodes: ?? Total number of lymph nodes: 3 ?? Number of sentinel lymph nodes: 3 ?? Number with macrometastases: 0 ?? Number with micrometastases: 1 ?? Number with isolated tumor cells: 0 ?? Size of largest amber metastasis (mm): < 1 mm ?? Size of extranodal extension (mm) (N=not identified): NA Estrogen receptor: positive (95%, intermediate to strong) Progesterone receptor: negative HER2 IHC: negative (1+) HER2 FISH: NA Specimen in which ER/NC/HER2 performed: [id number] pTNM: pT2 pN1mi Additional findings: NA Comment:. IHCs utilized in the assessment: E-cadherin (C1,2,4,5,6, F9) CK5/6 (C1,2,3,4,5,6, F9,10) PanK (D1,3,4, E1) ER (D3,4, C7, F9,10) NC (C7) HER2 (C7) CD31 (F9,10) The above synoptic report complies, in slightly modified form, with the guidelines of the [employer] and the Association of Directors of Anatomic and Surgical Pathology for the reporting of cancer specimens The diagnosis was discussed with Dr Yves Conrad 12/05/24 at 6:30 pm. MICROSCOPIC DESCRIPTION Slides are reviewed. All matched controls reacted appropriately. These tests were developed and their performance characteristics determined by [facility]. They may not have been cleared or approved by the U.S. Food and Drug Administration. The FDA has determined that such clearance or approval is not necessary. The above immunohistochemical/dualISH markers are ordered and reviewed by the Pathologist. GROSS DESCRIPTION A. Received in formalin in a container labeled with the patient's name, date of , and left breast sentinel lymph node is a 1.6 x 1.3 x 1.0 cm red-venegas fragment of fatty tissue. Serial sections reveal a 0.3 x 0.3 x 0.3 cm ortiz-blue focus, possibly consistent with lymph node. The possible node is submitted for frozen section analysis. The remaining remnants are submitted entirely as follows:A1. Frozen section remnantA2. Remainder of fatty tissue B. Received in formalin in a container labeled with the patient's name, date of , and left breast sentinel lymph node is a 2.0 x 1.3 x 0.4 cm venegas-yellow, possible lymph node. It is sectioned and submitted entirely for frozen section analysis. The remaining remnants are submitted entirely for permanent section analysis in B1. C. Received in formalin in a container labeled with the patient's name, date of , and left breast-lumpectomy is a 32.3 g, oriented left lumpectomy specimen (long stitch indicating lateral margin, short stitch indicating superior margin). The specimen measures 5.0 cm from anterior to posterior, 4.5 cm from superior to inferior, and 3.5 cm from medial to lateral. The lateral margin appears somewhat disrupted. Protruding from the anterior margin is a metal localization wire. Ink Tejada:Llkuicne-qanlXokksxwt-doqtwJoaplg-huhQnnoyhc-eujjqqBelxjxjs-ndnsqtMzcdpqyyu-black The specimen is serially sectioned from anterior to posterior into 9 slices to reveal a white-venegas, firm, and somewhat circumscribed mass within slices 5-9, towards the medial/posterior margins. A spiral metal biopsy clip is identified within the mass in slice 6.Mass measurement: 2.2 x 2.1 x 1.9 cm. It is situated to the margins as follows:Medial: Less than 0.1 cmLateral: 0.2 cm Posterior: 0.2 cmSuperior: 0.4 cmInferior: 0.5 cm Anterior: 1.5 cm Additionally, situated 0.7 cm from the mass in slice 3 is a suspicious, white-venegas, and firm nodule measuring 0.5 x 0.3 x 0.3 cm. It is situated 0.5 cm from the medial margin, and greater than 1 cm from the remaining margins. Surrounding the mass and nodule is pale venegas-yellow possible fat necrosis. The remaining cut surfaces are comprised of approximately 85% venegas-yellow adipose tissue and 15% white fibrous tissue. No other mass lesions are identified. Nut Sorter sections:C1. Slice 1, perpendicular sections of anterior marginC2. Slice 2, fibrous area adjacent to nodule with lateral/inferior and superior marginsC3. Slice 3, nodule to closest medial marginC4. Slice 4, fibrofatty tissue with medial lateral margins and between nodule and massC5. Slice 5, mass to inferior marginC6. Slice 6, mass to closest medial margin (area of biopsy clip)C7. Slice 6, serial section of mass to closest medial marginC8. Slice 7, mass to closest lateral and medial/inferior marginsC9. Slice 8, mass to posterior, superior, and medial margins (black ink smears between true margin and mass)C10-11. Slice 9, perpendicular sections of mass to posterior margin Total formalin fixation time: Between 6 and 72 hours. D. Received in formalin in a container labeled with the patient's name, date of , and Left breast: [place] lymph node are 2 fragments of venegas-yellow fatty tissue measuring 4.0 x 2.5 x 1.0 cm and 2.7 x 2.2 x 1.5 cm. Each are sectioned to reveal 2 venegas-pink lymph node candidates with central fat replacement. The lymph node candidates are approximately 2.0 x 1.0 x 1.0 cm and 3.0 x 0.7 x 0.6 cm. A portion of each is submitted for frozen section analysis (smaller in D1, larger in D2). The remaining remnants are submitted entirely as follows:D1. Frozen section remnant of smaller lymph node candidateD2. Frozen section remnant of larger lymph node candidateD3-4. Remainder of smaller lymph node candidateD5-6. Remainder of larger lymph node candidateD7. Remainder of separate fatty tissue E. Received in formalin in a container labeled with the patient's name, date of , and left breast sentinel lymph node is a 1.4 x 1.3 x 0.7 cm venegas-yellow lymph node candidate. It is quadrisected to reveal venegas-yellow, fatty surfaces. It is entirely submitted for frozen section analysis. The remaining remnants are submitted entirely for permanent section analysis in E1. F. Received in formalin in a container labeled with the patient's name, date of , and left breast lump new medial margin long stitch palm new medial margin, short stitch palm superior is an 11.9 g, oriented additional lumpectomy specimen with a long stitch indicating new margin and short stitch indicating superior margin. The specimen is 4.7 cm from superior to inferior, 4.7 cm from anterior to posterior, and up to 1.3 cm from medial to lateral. The new surgical (medial) margin is inked green, superior is inked blue, inferior is inked red, anterior is inked orange, posterior is inked black, and all initial surgical margin is un-inked. The specimen is serially sectioned from superior to inferior to reveal venegas-yellow, uniform surfaces with no distinct mass lesion identified. The specimen is submitted entirely and sequentially from superior to inferior as follows:F1. Perpendicular sections of superior marginF2-8. 1 full-thickness section per cassette (each section bisected and inked alice where sections connect) submitted from superior to inferiorF9. Perpendicular sections of inferior margin F10. Perpendicular sections of inferior margin NOTE: Alice ink does not indicate margin. 11/26/2024 CPT:[id number]
[2024-11-26] MEDS: Cefazolin 2 GM in Syringe IV (09:16)
[2024-11-26] MEDS: Isosulfan Blue 1% 5 ML Vial ×2 (09:34→09:35)
[2024-11-26] MEDS: Bupivacaine 0.25% 30 ML Vial (09:34)
--- NOTE | 2024-11-26 10:44 | BI_ITS ---
PROCEDURE: BREAST BIOPSY SPECIMEN 11/26/2024 REASON FOR EXAM: Surgical operative specimen. TECHNIQUE: Evaluation of a suspicious lesion identified on mammography (BI-RADS 4). COMPARISON: Prior exam(s) dated October 17, 2024.. FINDINGS: The mass is identified on the surgical specimen image. BI/Breast Biopsy Specimen IMPRESSION: The mass is seen within the surgical specimen. Reading Location: [id number]
--- NOTE | 2024-11-26 11:32 | OP.PCM_ITS ---
Operative Report (Standard) Operative Information Date of Procedure: 11/26/24 Pre-Operative Diagnosis: Left breast cancer Post-Operative Diagnosis: Same Surgery/Procedure Performed: Left ultrasound wire localization lumpectomy, sentinel lymph node biopsy with Lymphoseek and Lymphazurin blue administrative analyst: Yes [employer]: [place] Tasks completed by first leveler: Opening & closing Type of Anesthesia: General/Supplemental RN Documented Start/Stop Times: Operation Date: 11/26/24 09:00 Case Time Into Pre-Op 11/26/24 06:59 Out of Pre-Op 11/26/24 09:05 Anesthesia Start 11/26/24 09:10 Into Room 11/26/24 09:10 Procedure Start 11/26/24 09:47 Procedure Start Time: 09:47 Procedure Stop Time: 11:48 Select all DRAINS/GRAFTS/IMPLANTS that apply: None Special Medications: Ancef 2 g IV x 1 Estimated Blood Loss: 15 cc Specimen collected: Yes Description of specimen(s) removed: 1 and 2 left sentinel lymph node, #3 left lumpectomy, #4 left [place] lymph node, #5 left [place] lymph node Description of surgery: In AC the breast tissue was injected with Lymphoseek. 30 minutes later the patient was taken to the operating room and general anesthesia was induced. 5 cc of Lymphazurin 1% blue dye was injected in the 4 quadrants periareolar along with 10 cc of normal saline. This was massaged gently for 5 minutes. The left breast and axilla were prepped and draped in usual sterile fashion. A timeout was completed verifying correct patient, procedure, site, positioning, special equipment prior to beginning procedure. Handheld gamma probe was used to identify the location of the hottest spot in the axilla. Prior to the incision, the counts were 19. The incision was made in the hot was identified. The probe was placed in contact with the node in the 10 count was 804, initial tissue sent was not found to have any lymphoid tissue but did get counts 300-400 per 10 counts. The bed of the node measured 11 counts. No additional blue or hot nodes or palpable were detected. Frozen had 3 negative sentinel lymph nodes. Ultrasound was use for localization of the breast mass using the Kopan's needle. The wire was placed just inferiorly to the mass. A curvilinear incision was planned in such a way as to minimize the amount of dissection to reach the mass. Flaps were raised in the location of the wire confirmed. The wire was delivered into the wound. 2 silk tpklyb-zp-qckbd stay suture was placed around the wire and used for traction. Dissection was then taken down circumferentially, taking care to include the entire localization needle and wide margin of grossly normal tissue. The specimen and entire localizing wire were removed. The specimen was oriented and sent to radiology with the localization studies. Confirmation was received that the entire target lesion had been resected. 3 medium clips were placed in the line at the deep area of the cavity at pectoral fascia. The cavities were irrigated. Hemostasis was checked. The breast and axillary incisions were closed with interrupted sutures of 3-0 Vicryl and subcuticular sutures of 4-0 Monocryl. No attempt was made to close the space. Steri-Strips were placed on the breast incision and Dermabond on axilla incision. A supportive bra placed. The patient tolerated procedure well was taken to the postanesthesia care in stable condition Surgical Findings: Frozen 3 sentinel lymph nodes negative Complications Complications: No
--- NOTE | 2024-11-26 11:38 | EX.PCM.DISCH ---
Discharge Instructions Diet Discharge Diet: No restrictions Activity Discharge Activity: May Not Drive (for 2-3 days or while taking narcotic pain meds.) May shower in (days): 1 Lifting Restrictions: 10 pounds for 1 week. Dressing / Incision Call your doctor if your incision/area has: Continuous Slow Oozing, Sudden Increased Bleeding, Increased Pain/ Swelling and Increased Redness Call your doctor if you observe: Fever of 101 or Higher Suture Line Care: Avoid Pulling/Pushing and Avoid Pinching/Bending Remove Dressing in: 1 day Additional Dressing/Incision Instructions:: Remove bulky dressing tomorrow. May leave op-site dressing for 3-4 days. Dermabond (glue) was used at the axillary incision this may start to peel off in about 5 days. Okay to remove Steri-Strips from the breast incision in 7 to 10 days. Follow Up Care Please Follow Up With: Daisy Conrad MD When: Please call [phone] for an appointment to be seen in 2 week. Test Results: Test results from this visit will be discussed in further detail at your follow-up appointment, if applicable. Discharge Plan Admission Attending Provider: Daisy Conrad Primary Care Provider: Brenton Feliciano Instructions Print Language: Azerbaijani Discharge Orders/Prescriptions Prescriptions: New tramadol 50 mg tablet 50 mg PO Q6H PRN (Reason: pain) Qty: 5 0RF Continued rosuvastatin 10 mg tablet 20 mg PO DAILY omeprazole 40 mg capsule,delayed release(DR/EC) 40 mg PO DAILY vitamin X48-mjahv acid 1-0.8 mg tablet 1 tab PO DAILY cholecalciferol (vitamin D3) 25 mcg (1,000 unit) capsule 25 mcg PO QDAY Referrals / Follow Up: Brenton Feliciano MD [Primary Care Provider] - Disposition Disposition (needs filled in before D/C Order can be placed): Home, Self Care
--- NOTE | 2024-11-26 11:53 | PCM.POST.ANE ---
Anesthesia: Postop Eval I Current Vital Signs Temperature: 97.5 F Pulse Rate: 79 Blood Pressure: 134/79 Respiratory Rate: 14 Pulse Ox: 99 Oxygen Delivery Method: Nasal Cannula Assessment Airway patent: Yes Spontaneous unlabored respirations: Yes Mental status: Awake nausea: No Vomiting: No Anesthesia Complication: No Fluid Hydration Crystalloid volume administer (ml): 1,200 Total IV fluid infused: 1,200 Progress Note Anesthesia document: Postop Eval 1 completed: Yes
--- NOTE | 2024-11-26 13:42 | POSTOPAN2_ITS ---
Anesthesia Postop Eval I Sum Postop Eval Completion status Anesthesia document: Postop Eval 1 completed: Yes Anesthesia Postop Eval I Summary Anesthesia Postop Eval I Summary: Anesthesia Postop Eval I: Assessment Summary Airway patent Yes 11/26/24 12:01 [email or web address] Spontaneous unlabored Yes 11/26/24 12:01 [facility] [email or web address] respirations Mental status Awake 11/26/24 12:01 [facility] [email or web address] nausea No 11/26/24 12:01 [facility] [email or web address] Vomiting No 11/26/24 12:01 [facility] [email or web address].[email or web address] Anesthesia Postop Eval I: Fluid Summary Crystalloid volume administer 1,200 11/26/24 12:01 [email or web address] [email or web address] (ml) Colloids volume administered ( ml) Blood Product volume administered (ml) Total IV fluid infused 1,200 11/26/24 12:01 [facility] [email or web address].[email or web address] Anesthesia Postop Eval I: Summary Notes Anesthesia Complication No 11/26/24 12:01 [email or web address] [email or web address] Anesthesia Complication Comment: Post-operative progress note Anesthesia: Postop Eval II Evaluation Mental status: Awake and Calm Pain Level: 0 nausea: No Vomiting: No Complications Anesthesia Complication: No
--- NOTE | 2024-11-26 13:42 | PCM.POSTANE2 ---
Anesthesia Postop Eval I Sum Postop Eval Completion status Anesthesia document: Postop Eval 1 completed: Yes Anesthesia Postop Eval I Summary Anesthesia Postop Eval I Summary: Anesthesia Postop Eval I: Assessment Summary Airway patent Yes 11/26/24 12:01 [email or web address] Spontaneous unlabored Yes 11/26/24 12:01 [email or web address] respirations Mental status Awake 11/26/24 12:01 [email or web address] nausea No 11/26/24 12:01 [email or web address] Vomiting No 11/26/24 12:01 [email or web address] Anesthesia Postop Eval I: Fluid Summary Crystalloid volume administer 1,200 11/26/24 12:01 [email or web address] (ml) Colloids volume administered ( ml) Blood Product volume administered (ml) Total IV fluid infused 1,200 11/26/24 12:01 [email or web address] Anesthesia Postop Eval I: Summary Notes Anesthesia Complication No 11/26/24 12:01 [email or web address] Anesthesia Complication Comment: Post-operative progress note Anesthesia: Postop Eval II Evaluation Mental status: Awake and Calm Pain Level: 0 nausea: No Vomiting: No Complications Anesthesia Complication: No
== END 2024-11-26 14:09 | disposition home or self-care (01) ==
LOC: SDC 06:48 → AC 06:53
PROVIDERS: PCP Family Medicine; Referring Provider Surgery; Visit Provider Surgery
PROC: 0HBV0ZZ Excision of Bilateral Breast, Open Approach (ICD-10-PCS; CPT 19302; principal; 2024-11-26 08:45)
DX: C50.919 Malignant neoplasm of unspecified site of unspecified female breast (principal); Z17.0 Estrogen receptor positive status [ER+]; E78.00 Pure hypercholesterolemia, unspecified; Z17.32 Human epidermal growth factor receptor 2 negative status; K21.9 Gastro-esophageal reflux disease without esophagitis; Z90.710 Acquired absence of both cervix and uterus
CPT/HCPCS: 19301; 38525; 38900; 00400; 38792; 76098; 88305; 88331; 88332; A4648; A9520; J2405; Q9968

== ENCOUNTER → 2024-12-24 | Outpatient (CLI) | payer MEDICARE, SELFPAY ==
--- NOTE | 2024-12-24 08:16 | BD_ITS ---
PROCEDURE: DEXA BONE DENSITY STUDY 12/24/2024 REASON FOR EXAM: SCREENING FOR BONE LOSS AND OSTEOPOROSIS F, age 74 y/o . TECHNIQUE: DXA scan of sites with data reported below. Scanner utilized: [employer]. [facility] COMPARISON: August 11, 2016 FINDINGS: BMD and T-SCORES Lumbar spine: 1.083 g/cm2, T-score 0.3 Levels: L1 through L4 Change from prior: 8.0. Left femoral neck: 0.595 g/cm2, T-score -2.3 Femoral neck comparison data not recommended for monitoring change. Prior T-score -1.4 Left total hip: 0.824 g/cm2, T-score -1.0 Change from prior: 7.4 %. Right femoral neck: 0.625 g/cm2, T-score -2.0 Femoral neck comparison data not recommended for monitoring change. Prior T-score -1.1 Right total hip: 0.842 g/cm2, T-score -0.8 Change from prior: 3.7%. The World Health Organization has defined the following categories based on bone density: Normal bone density: T-score equal to or greater than -1.0 Osteopenia: T-score between -1.0 and -2.5 Osteoporosis: T-score equal to or less than -2.5 FRAX (or Comparable) Fracture Risk Assessment: 10 Year Probability of Fracture: Major Osteoporotic Fracture: 12% Hip Fracture: 3% (Note: FRAX is not to be reported in setting of normal range bone density, osteoporosis on DEXA, known history of osteoporosis, prior osteoporotic hip or vertebral fracture, or for any patient undergoing pharmacological treatment for bone loss.) The National Osteoporosis Foundation (NOF) recommends pharmacological treatment for patients with a FRAX 10-year risk of 3% or higher for a hip fracture, or 20% or higher for a major osteoporotic fracture, to prevent osteoporosis and reduce fracture risk. BD/Dexa Bone Density Study IMPRESSION: OSTEOPENIA. Recommend follow-up in 2 years. Reading [facility]
== END | disposition home or self-care (01) ==
LOC: OPBD 07:59
PROVIDERS: PCP Family Medicine; Referring Provider Internal Medicine Hematology & Oncology; Visit Provider Internal Medicine Hematology & Oncology
DX: M85.89 Other specified disorders of bone density and structure, multiple sites (principal); Z78.0 Asymptomatic menopausal state
CPT/HCPCS: 77080

== ENCOUNTER → 2025-03-26 | Outpatient (CLI) | payer MEDICARE, SELFPAY ==
[2025-03-26 11:09] LABS: Anion Gap 14 (5-15); BUN 23 mg/dL (4-19); BUN/Creat Ratio 21.3 RATIO (10-20); Calcium,Total 9.5 mg/dL (7.6-11.0); Carbon Dioxide 21.1 mmol/L (21.0-32.0); Chloride 104 mmol/L (98-108); Cholesterol 175 mg/dL (<=200); Glucose 137 mg/dL (70-99); Low Density Lipoprotein Calc. 94 mg/dL; Potassium 4.0 mmol/L (3.3-5.1); Triglycerides 215 mg/dL; Very Low Density Lipoprotein 43 mg/dL (5-40); cholesterol:hdl ratio screen 4.56
[2025-03-26 13:43] LABS: Creatinine, Urine (random) 335.00 mg/dL (28.00-217.00); Microalbumin,Random Urine 19.6 mg/L (<20 mg/L)
== END | disposition home or self-care (01) ==
LOC: MFPLAB 08:31
PROVIDERS: PCP Family Medicine; Referring Provider Family Medicine; Visit Provider Family Medicine
DX: E11.69 Type 2 diabetes mellitus with other specified complication (principal)
CPT/HCPCS: 36415; 80048; 80061; 82043; 82570